=== PATIENT | female | born 1945 | race Caucasian/White ===

== ENCOUNTER 2022-02-01 11:41 | Emergency (ER) | payer MEDICARE, OTHER ==
[~2022-02-01] VITALS: Ht 165.1 cm; Wt 90.7 kg
[2022-02-01] MEDS ORDERED: METF-441 PO (12:03)
[2022-02-01] MEDS ORDERED: DILTIAZEM (12:03)
[2022-02-01] MEDS ORDERED: ASPI81TA31 PO (12:03)
[2022-02-01] MEDS ORDERED: ATORVASTATIN (12:03)
[2022-02-01] MEDS ORDERED: HYDROCHLOROTHIAZIDE (12:03)
[2022-02-01] MEDS ORDERED: ATENOLOL (12:03)
[2022-02-01] MEDS ORDERED: FLUOXETINE (12:03)
--- NOTE | 2022-02-01 12:18 | NUR ---
Patient's daughter (who is accompanying the patient in ER bed 1) said that they want to leave. Multiple explanation by our tank charger and ER staff explained to patient and family regarding potential delays and that our doctor will see the patient as soon as possible.
--- NOTE | 2022-02-01 12:22 | NUR ---
[email or web address], medical screening exam in progress
[2022-02-01] MEDS ORDERED: AZIT500T PO (12:36)
[2022-02-01] MEDS ORDERED: PRED50TA PO (12:36)
[2022-02-01] MEDS ORDERED: paxlovid PO (12:36)
[2022-02-01 12:46] VITALS: BP 126/71
--- NOTE | 2022-02-01 12:46 | NUR ---
Patient discharged to home in stable condition. Written and verbal after care instructions given by MD himself to patient and family. Patient and family verbalized understanding and compliance of instructions. Stressed follow up with primary doctor or return to ER for worsening s/s.
== END 2022-02-01 12:51 | disposition home or self-care (01) ==
LOC: ER 11:57
DX: U07.1 COVID-19 (principal); R51.9 Headache, unspecified; E11.9 Type 2 diabetes mellitus without complications; Z79.84 Long term (current) use of oral hypoglycemic drugs; I10 Essential (primary) hypertension; Z87.01 Personal history of pneumonia (recurrent); Z79.899 Other long term (current) drug therapy
CPT/HCPCS: A4663